=== PATIENT | male | born 1990 | race Caucasian/White ===

== ENCOUNTER 2019-08-11 08:52 | Emergency (ER) | payer MEDICAID ==
[~2019-08-11] VITALS: Ht 170.2 cm; Wt 90.0 kg
[~2019-08-11 08:52] MED LIST: ZIPR20CA2 PO
[2019-08-11] MEDS ORDERED: SODIUM CHLORIDE 0.9% 1,000ML IVBOLUS ONE (09:00)
[2019-08-11] MEDS ORDERED: ACETAMINOPHEN 325 MG TABLET ONE (09:24)
[2019-08-11 09:27] LABS: BASOPHILS # (AUTO) 0.03 x10^3/uL (0-0.1); BASOPHILS % (AUTO) 0 % (0-1); EOSINOPHILS # (AUTO) 0.15 x10^3/uL (0-0.4); EOSINOPHILS % (AUTO) 1 % (1-7); LYMPHOCYTES # (AUTO) 2.33 x10^3/uL (1-3.4); LYMPHOCYTES % (AUTO) 18 % (22-44); MD NO; MEAN CORPUSCULAR HEMOGLOBIN 30.2 pg (27.5-34.5); MEAN CORPUSCULAR HGB CONC 33.4 g/dL (33.2-36.2); MEAN CORPUSCULAR VOLUME 90.5 fL (81-97); MEAN PLATELET VOLUME 7.7 fL (7.4-10.4); MONOCYTES # (AUTO) 0.94 x10^3/uL (0.2-0.8); MONOCYTES % (AUTO) 7 % (2-9); NEUTROPHILS # (AUTO) 9.54 x10^3/uL (1.8-6.8); NEUTROPHILS % (AUTO) 73 % (42-75); PLATELET COUNT 334 x10^3/uL (130-400); RED BLOOD COUNT 5.06 x10^6/uL (4.38-5.82); RED CELL DISTRIBUTION WIDTH 13.5 % (9.4-14.8)
--- NOTE | 2019-08-11 09:29 | NUR ---
URINE COLLECTED AND SENT, LAB AT BEDSIDE FOR DRAW. FLUIDS AND MEDS PER MAR. PT DENIES ANY FURTHER NEEDS OR CONCERNS AT THIS TIME. PROPVIDED WITH WARM BLANKETS, CALL LIGHT IN REACH.
[2019-08-11] MEDS ORDERED: ACETAMINOPHEN 325 MG TABLET PO ONE (09:30)
[2019-08-11 09:32] LABS: MICROSCOPIC NOT IND
[2019-08-11 09:35] LABS: CULTURE INDICATED? NO
[2019-08-11 09:40] LABS: ALANINE AMINOTRANSFERASE 33 U/L (12-78); ALBUMIN 3.6 g/dL (3.4-5.0); ANION GAP 5 mmol/L (5-15); CALCIUM 8.3 mg/dL (8.5-10.1); CHLORIDE 111 mmol/L (98-107); CREATININE 0.78 mg/dL (0.7-1.3)
[2019-08-11 09:42] LABS: ALKALINE PHOSPHATASE 76 U/L (45-117); BILIRUBIN,TOTAL 0.3 mg/dL (0.2-1.0); TOTAL PROTEIN 6.9 g/dL (6.4-8.2)
[2019-08-11 10:02] VITALS: BP 115/62
== END 2019-08-11 10:20 | disposition home or self-care (01) ==
LOC: ED 09:08
DX: R11.2 Nausea with vomiting, unspecified (principal); B34.9 Viral infection, unspecified; R10.32 Left lower quadrant pain
CPT/HCPCS: 36415; 80053; 81003; 83690; 85025; 96360; 99283; J7030

== ENCOUNTER 2019-08-18 06:10 | Emergency (ER) | payer MEDICAID ==
[~2019-08-18] VITALS: Ht 172.7 cm; Wt 81.8 kg
[2019-08-18 06:13] VITALS: BP 122/67
--- NOTE | 2019-08-18 06:52 | NUR ---
pt to room from lobby
--- NOTE | 2019-08-18 07:21 | NUR ---
pt to xr w tech
--- NOTE | 2019-08-18 08:27 | NUR ---
pt ambulated to registration desk with a steady gait. nourishment provided to go.
== END 2019-08-18 08:29 ==
LOC: ED 08:20
DX: S02.2XXA Fracture of nasal bones, initial encounter for closed fracture (principal); Y04.0XXA Assault by unarmed brawl or fight, initial encounter; Y93.89 Activity, other specified; Y92.89 Other specified places as the place of occurrence of the external cause; Y99.8 Other external cause status
CPT/HCPCS: 70160; 99283

== ENCOUNTER 2019-09-06 12:45 | Emergency (ER) | payer MEDICAID ==
[~2019-09-06] VITALS: Ht 170.2 cm; Wt 84.2 kg
[2019-09-06 12:47] VITALS: BP 133/94
== END 2019-09-06 13:41 | disposition home or self-care (01) ==
LOC: ED 13:20
DX: L03.113 Cellulitis of right upper limb (principal); L03.114 Cellulitis of left upper limb; T69.022A Immersion foot, left foot, initial encounter; T69.021A Immersion foot, right foot, initial encounter; F17.200 Nicotine dependence, unspecified, uncomplicated
CPT/HCPCS: 99283

== ENCOUNTER 2019-09-07 00:59 | Emergency (ER) | payer MEDICAID ==
[~2019-09-07] VITALS: Ht 170.2 cm; Wt 84.1 kg
[2019-09-07 01:05] VITALS: BP 127/57
[2019-09-07] MEDS ORDERED: IBUPROFEN 200 MG TABLET ONE (01:28)
[2019-09-07] MEDS ORDERED: IBUPROFEN 600 MG TABLET PO ONE (01:30)
--- NOTE | 2019-09-07 02:12 | NUR ---
Patient/Caregiver given discharge instructions and they have confirmed that they understand the instructions. Patient ambulatory with steady gait.
== END 2019-09-07 02:13 | disposition home or self-care (01) ==
LOC: ED 01:36
DX: B35.3 Tinea pedis (principal); L03.114 Cellulitis of left upper limb; L03.113 Cellulitis of right upper limb
CPT/HCPCS: 99283

== ENCOUNTER 2019-09-08 11:24 | Emergency (ER) | payer MEDICAID ==
[~2019-09-08] VITALS: Ht 170.2 cm; Wt 84.0 kg
[2019-09-08 11:47] VITALS: BP 108/67
== END 2019-09-08 12:37 | disposition home or self-care (01) ==
LOC: ED 12:26
DX: L03.113 Cellulitis of right upper limb (principal); F17.200 Nicotine dependence, unspecified, uncomplicated
CPT/HCPCS: 99283

== ENCOUNTER 2019-09-09 12:36 | Emergency (ER) | payer MEDICAID ==
[~2019-09-09] VITALS: Ht 170.2 cm; Wt 84.5 kg
[2019-09-09 13:06] VITALS: BP 144/83
[2019-09-09 13:25] LABS: BASOPHILS # (AUTO) 0.06 x10^3/uL (0-0.1); BASOPHILS % (AUTO) 1 % (0-1); EOSINOPHILS # (AUTO) 0.11 x10^3/uL (0-0.4); EOSINOPHILS % (AUTO) 1 % (1-7); LYMPHOCYTES # (AUTO) 2.53 x10^3/uL (1-3.4); LYMPHOCYTES % (AUTO) 32 % (22-44); MD NO; MEAN CORPUSCULAR HEMOGLOBIN 30.4 pg (27.5-34.5); MEAN CORPUSCULAR HGB CONC 33.3 g/dL (33.2-36.2); MEAN CORPUSCULAR VOLUME 91.2 fL (81-97); MEAN PLATELET VOLUME 8.6 fL (7.4-10.4); MONOCYTES # (AUTO) 0.58 x10^3/uL (0.2-0.8); MONOCYTES % (AUTO) 7 % (2-9); NEUTROPHILS # (AUTO) 4.52 x10^3/uL (1.8-6.8); NEUTROPHILS % (AUTO) 58 % (42-75); PLATELET COUNT 330 x10^3/uL (130-400); RED BLOOD COUNT 4.96 x10^6/uL (4.38-5.82); RED CELL DISTRIBUTION WIDTH 14.7 % (9.4-14.8)
[2019-09-09 13:35] LABS: ALBUMIN 3.9 g/dL (3.4-5.0); ANION GAP 7 mmol/L (5-15); CALCIUM 8.7 mg/dL (8.5-10.1); CHLORIDE 111 mmol/L (98-107); CREATININE 0.92 mg/dL (0.7-1.3)
== END 2019-09-09 15:05 | disposition home or self-care (01) ==
LOC: ED 15:00
DX: L03.113 Cellulitis of right upper limb (principal)
CPT/HCPCS: 36415; 80048; 82040; 85025; 99284

== ENCOUNTER 2019-09-11 08:20 | Emergency (ER) | payer MEDICAID ==
[~2019-09-11] VITALS: Ht 170.2 cm; Wt 81.2 kg
[2019-09-11 08:34] VITALS: BP 148/87
[2019-09-11 09:03] LABS: MEAN CORPUSCULAR HEMOGLOBIN 30.5 pg (27.5-34.5); MEAN CORPUSCULAR HGB CONC 33.4 g/dL (33.2-36.2); MEAN CORPUSCULAR VOLUME 91.3 fL (81-97); MEAN PLATELET VOLUME 8.6 fL (7.4-10.4); PLATELET COUNT 297 x10^3/uL (130-400); RED BLOOD COUNT 5.18 x10^6/uL (4.38-5.82); RED CELL DISTRIBUTION WIDTH 14.3 % (9.4-14.8)
[2019-09-11 09:08] LABS: ALBUMIN 4.2 g/dL (3.4-5.0); ANION GAP 9 mmol/L (5-15); CALCIUM 9.1 mg/dL (8.5-10.1); CHLORIDE 109 mmol/L (98-107); CREATININE 0.88 mg/dL (0.7-1.3)
[2019-09-11 09:45] LABS: BASOPHILS # (AUTO) 0.02 x10^3/uL (0-0.1); BASOPHILS % (AUTO) 0 % (0-1); EOSINOPHILS # (AUTO) 0.03 x10^3/uL (0-0.4); EOSINOPHILS % (AUTO) 0 % (1-7); LYMPHOCYTES # (AUTO) 1.73 x10^3/uL (1-3.4); LYMPHOCYTES % (AUTO) 16 % (22-44); MD SCAN; MONOCYTES # (AUTO) 0.41 x10^3/uL (0.2-0.8); MONOCYTES % (AUTO) 4 % (2-9); NEUTROPHILS # (AUTO) 8.36 x10^3/uL (1.8-6.8); NEUTROPHILS % (AUTO) 79 % (42-75)
== END 2019-09-11 11:54 | disposition home or self-care (01) ==
LOC: ED 09:03
DX: F41.1 Generalized anxiety disorder (principal); R42 Dizziness and giddiness; R53.83 Other fatigue; M79.89 Other specified soft tissue disorders; F17.200 Nicotine dependence, unspecified, uncomplicated
CPT/HCPCS: 36415; 80048; 82040; 85025; 99283

== ENCOUNTER 2019-09-14 05:13 | Emergency (ER) | payer MEDICAID ==
[~2019-09-14] VITALS: Ht 170.2 cm; Wt 84.0 kg
[2019-09-14] MEDS ORDERED: LIDOCAINE-MPF 1%, 5ML INFIL ONE (05:30)
--- NOTE | 2019-09-14 05:42 | NUR ---
Patient brought in by chani, patient moans, stating he needs to urinate but can't. [facility] reports patient was drinking the past day and patient hasn't been able to urinate since midnight the night before. Patient attached to pulsatile oxygen sensor and blood pressure cuff, vital signs are stable (see Triage flowsheet.) Patient is alert, oriented and answers questions clearly between moans. Provider to bedside, assessed. Relayed to RN orders that are placed in electronic medical record for placement of Sloan catheter. RN returned to bedside with sloan catheter, placed per hospital protocol and urine sample collected. Provider informed. Collar Fuser was sent away while placing Sloan. RN called laboratory and asked to collect labs. Awaiting lab draw, and urinalysis.
[2019-09-14] MEDS ORDERED: LIDOCAINE-MPF 1%, 5ML ONE (05:59)
--- NOTE | 2019-09-14 06:15 | NUR ---
Lidocaine, sutures and suture tray provided to midlevel provider. Electrical Manufacturing Engineer asked to wash wound. Awaiting suturing of laceration by provider.
[2019-09-14] MEDS ORDERED: ACETAMINOPHEN 325 MG TABLET ONE (06:32)
[2019-09-14] MEDS ORDERED: NEOSPORIN OINT. PKT 1 PACKET ONE (06:36)
[2019-09-14] MEDS ORDERED: ACETAMINOPHEN 325 MG TABLET PO ONE (07:00)
[2019-09-14 07:14] VITALS: BP 114/66
--- NOTE | 2019-09-14 07:14 | NUR ---
Patient given wound care & discharge instructions and they have confirmed that they understand the instructions. Patient ambulatory with steady gait.
== END 2019-09-14 07:23 | disposition home or self-care (01) ==
LOC: ED 06:22
DX: S01.111A Laceration without foreign body of right eyelid and periocular area, initial encounter (principal); S06.0X9A Concussion with loss of consciousness of unspecified duration, initial encounter; F10.120 Alcohol abuse with intoxication, uncomplicated; Y00.XXXA Assault by blunt object, initial encounter; Y93.89 Activity, other specified; Y92.488 Other paved roadways as the place of occurrence of the external cause; Y99.8 Other external cause status; Y90.9 Presence of alcohol in blood, level not specified
CPT/HCPCS: 12011; 70450; 70486; 99284

== ENCOUNTER 2019-09-28 08:49 | Emergency (ER) | payer MEDICAID ==
[~2019-09-28] VITALS: Ht 170.2 cm; Wt 82.0 kg
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
[2019-09-28 08:56] VITALS: BP 133/71
--- NOTE | 2019-09-28 09:38 | NUR ---
Patient/Caregiver given discharge instructions and they have confirmed that they understand the instructions. Patient ambulatory with steady gait.
== END 2019-09-28 09:40 | disposition home or self-care (01) ==
LOC: ED 08:59
DX: S60.511A Abrasion of right hand, initial encounter (principal); S60.410A Abrasion of right index finger, initial encounter; S01.81XD Laceration without foreign body of other part of head, subsequent encounter; F10.129 Alcohol abuse with intoxication, unspecified; Y90.0 Blood alcohol level of less than 20 mg/100 ml; X58.XXXA Exposure to other specified factors, initial encounter; Y93.89 Activity, other specified; Y92.89 Other specified places as the place of occurrence of the external cause; Y99.8 Other external cause status
CPT/HCPCS: 99283

== ENCOUNTER 2019-10-17 06:05 | Emergency (ER) | payer MEDICAID ==
[~2019-10-17] VITALS: Ht 170.2 cm; Wt 83.3 kg
--- NOTE | 2019-10-17 06:28 | NUR ---
PT C/O COUGH AND SORE THROAT, STATES HE COUGHED UP BLOOD. ERP AT BEDSIDE FOR EVAL.
[2019-10-17] MEDS ORDERED: DEXAMETHASONE 4 MG TABLET ONE (06:36)
--- NOTE | 2019-10-17 06:48 | NUR ---
BEDSIDE REPORT TO HERBERT ROMEO.
[2019-10-17] MEDS ORDERED: DEXAMETHASONE 4 MG TABLET PO ONE (07:00)
--- NOTE | 2019-10-17 07:08 | NUR ---
Assumed care of pt. Resting quietly at this time, denies any needs. Pt aware waiting for final test results and chart review by ERP.
[2019-10-17 07:52] VITALS: BP 132/77
--- NOTE | 2019-10-17 07:54 | NUR ---
REVIEWED DISCHARGE INSTRUCTIONS AND PRESCRIPTIONS W/ PT, VERBALIZED UNDERSTANDING TO INFORMATION PROVIDED INCLUDING FOLLOW UP CARE, RETURN PRECAUTIONS, AND HAND HYGIENE, DENIED QUESTIONS/CONCERNS. PT AMBULATED FROM ED, NO SIGNS OF DISTRESS AT TIME OF DISCHARGE.
== END 2019-10-17 07:56 | disposition home or self-care (01) ==
LOC: ED 06:32
DX: J02.8 Acute pharyngitis due to other specified organisms (principal); B97.89 Other viral agents as the cause of diseases classified elsewhere
CPT/HCPCS: 71046; 87081; 87880; 99284

== ENCOUNTER 2019-10-18 16:16 | Inpatient (IN) | payer MEDICAID ==
[~2019-10-18] VITALS: Ht 166.9 cm; Wt 84.5 kg
[2019-10-18] MEDS ORDERED: DEXAMETHASONE 4 MG/ML, 1ML ONE (16:56)
[2019-10-18] MEDS ORDERED: DEXAMETHASONE 4 MG/ML, 1ML IVPush ONE (17:00)
[2019-10-18] MEDS ORDERED: SODIUM CHLORIDE 0.9% 1,000ML IVBOLUS ONE ×2 (17:00→18:30)
[2019-10-18] MEDS ORDERED: SODIUM CHLORIDE FLUSH 10ML SYR IVF ONE (17:00)
--- NOTE | 2019-10-18 17:09 | NUR ---
PIV EST LABS SENT/BC X2. MEDS PER MAR.
[2019-10-18 17:23] LABS: ALANINE AMINOTRANSFERASE 35 U/L (12-78); ALBUMIN 3.4 g/dL (3.4-5.0); ANION GAP 8 mmol/L (5-15); CALCIUM 8.7 mg/dL (8.5-10.1); CHLORIDE 107 mmol/L (98-107); CREATININE 0.93 mg/dL (0.7-1.3)
[2019-10-18 17:25] LABS: ALKALINE PHOSPHATASE 96 U/L (45-117); BILIRUBIN,TOTAL 0.2 mg/dL (0.2-1.0); TOTAL PROTEIN 7.4 g/dL (6.4-8.2)
[2019-10-18 17:39] LABS: MEAN CORPUSCULAR HEMOGLOBIN 30.1 pg (27.5-34.5); MEAN CORPUSCULAR HGB CONC 33.3 g/dL (33.2-36.2); MEAN CORPUSCULAR VOLUME 90.4 fL (81-97); MEAN PLATELET VOLUME 8.9 fL (7.4-10.4); PLATELET COUNT 349 x10^3/uL (130-400); RED BLOOD COUNT 5.08 x10^6/uL (4.38-5.82); RED CELL DISTRIBUTION WIDTH 13.8 % (9.4-14.8)
[2019-10-18 17:46] LABS: MD YES
[2019-10-18] MEDS ORDERED: OMNIPAQUE 350 MG/ML, 100ML BOTTLE ONE (18:07)
[2019-10-18] MEDS ORDERED: BENZOCAINE 20% SPRAY 0.5ML ONE (18:24)
[2019-10-18] MEDS ORDERED: BENZOCAINE AEROSOL SPRAY 20%, 60ML ONE (18:24)
[2019-10-18] MEDS ORDERED: CLINDAMYCIN PMX 900MG/50ML 50 ML IV ONE (18:30)
[2019-10-18] MEDS ORDERED: BENZOCAINE 20% SPRAY 0.5ML TP ONE (18:30)
[2019-10-18] MEDS ORDERED: MORPHINE SULFATE 4 MG/ML, 1ML IVPush PRN (18:30)
[2019-10-18] MEDS ORDERED: ONDANSETRON 2MG/ML, 2ML IVPush ONE (18:30)
[2019-10-18] MEDS ORDERED: ONDANSETRON 2MG/ML, 2ML ONE (18:31)
[2019-10-18] MEDS ORDERED: MORPHINE SULFATE 4 MG/ML, 1ML ONE (18:31)
[2019-10-18] MEDS ORDERED: CLINDAMYCIN PMX 900MG/50ML 50 ML ONE (18:32)
--- NOTE | 2019-10-18 18:42 | NUR ---
TBADM. MEDS PER OCT. SHOAIB IN TO DRAIN ABSCESS IN THROAT. PT AWARE OF ADMIT, AGREES. VSS. CALL NUGENT IN REACH.
[2019-10-18 18:44] LABS: BAND#(MANUAL) 0.57 x10^3/uL; BANDS%(MANUAL) 3 % (0-7); EOS#(MANUAL) 0.19 x10^3/uL (0.0-0.4); EOS% (MANUAL) 1 % (1-7); LYMPH#(MANUAL) 2.47 x10^3/uL (1-3.4); LYMPHS% (MANUAL) 13 % (22-44); MONOS#(MANUAL) 1.71 x10^3/uL (0.3-2.7); MONOS% (MANUAL) 9 % (2-9); REACTIVE LYMPHS # (MANUAL) 0.19 x10^3/uL (0-0); REACTIVE LYMPHS % (MANUAL) 1 % (0-0); SEG#(MANUAL) 13.87 x10^3/uL (1.8-6.8); SEGS% (MANUAL) 73 % (42-75)
[2019-10-18 18:45] LABS: <PLATELET ESTIMATE> ADEQUATE; <PLT MORPHOLOGY> NORMAL PLT MORPH; <RBC MORPHOLOGY> NORMAL
--- NOTE | 2019-10-18 19:43 | NUR ---
PT RESTING, AWAITING BED. ABSCESS WAS DRAINED. VSS. CALM, COOPERATIVE. CALL NUGENT.
--- NOTE | 2019-10-18 20:30 | NUR ---
REPORT TO SULY ROMEO. PT BEING TRANSPORTED UPSTAIRS W/ ALL BELONGINGS.
[2019-10-18 20:49] VITALS: BP 117/62
[2019-10-18] MEDS ORDERED: LIDODERM 5% PATCH TD PRN (23:00)
[2019-10-18] MEDS ORDERED: ACETAMINOPHEN 325 MG TABLET PO PRN (23:00)
[2019-10-18] MEDS ORDERED: ONDANSETRON 2MG/ML, 2ML IVPush PRN (23:00)
[2019-10-18] MEDS ORDERED: DOCUSATE 100 MG CAPSULE PO PRN (23:00)
[2019-10-18] MEDS ORDERED: TEMAZEPAM 15 MG CAPSULE PO PRN (23:00)
[2019-10-18] MEDS ORDERED: maalox/diphenh/lido/sucralfate 5 ML PO PRN (23:30)
[2019-10-18] MEDS: morphine SULFATE 10 MG/ML, 1ML IVPush PRN (23:30)
[2019-10-19] MEDS: CLINDAMYCIN PMX 600MG/50ML 50 ML IV SCH ×2 (00:38→08:31)
[2019-10-19 03:43] VITALS: BP 117/70
[2019-10-19 04:59] LABS: MEAN CORPUSCULAR HEMOGLOBIN 30.2 pg (27.5-34.5); MEAN CORPUSCULAR HGB CONC 32.9 g/dL (33.2-36.2); MEAN PLATELET VOLUME 8.8 fL (7.4-10.4); PLATELET COUNT 336 x10^3/uL (130-400); RED BLOOD COUNT 4.78 x10^6/uL (4.38-5.82); RED CELL DISTRIBUTION WIDTH 13.9 % (9.4-14.8)
[2019-10-19 05:10] LABS: ANION GAP 7 mmol/L (5-15); CALCIUM 8.5 mg/dL (8.5-10.1); CHLORIDE 107 mmol/L (98-107); CREATININE 0.71 mg/dL (0.7-1.3)
[2019-10-19 05:40] LABS: BASOPHILS # (AUTO) 0.22 x10^3/uL (0-0.1); BASOPHILS % (AUTO) 1 % (0-1); EOSINOPHILS % (AUTO) 0 % (1-7); LYMPHOCYTES # (AUTO) 1.14 x10^3/uL (1-3.4); LYMPHOCYTES % (AUTO) 7 % (22-44); MD SCAN; MONOCYTES # (AUTO) 0.52 x10^3/uL (0.2-0.8); MONOCYTES % (AUTO) 3 % (2-9); NEUTROPHILS % (AUTO) 88 % (42-75)
[2019-10-19 07:24] VITALS: BP 117/65
[2019-10-19] MEDS: morphine SULFATE 10 MG/ML, 1ML IVPush PRN ×2 (08:31→13:32)
[2019-10-19 13:19] VITALS: BP 96/56
[2019-10-19] MEDS: AMPICILLIN/SULBACTAM 3 GM in SODIUM CHLORIDE 0.9% 100 ML IV SCH ×2 (13:27→18:20)
[2019-10-19] MEDS: OXYcodone/APAP 5/325MG TABLET PO PRN (18:20)
[2019-10-19 19:36] VITALS: BP 120/79
[2019-10-20 00:34] VITALS: BP 113/77
[2019-10-20] MEDS: AMPICILLIN/SULBACTAM 3 GM in SODIUM CHLORIDE 0.9% 100 ML IV SCH ×3 (00:46→13:02)
[2019-10-20] MEDS: OXYcodone/APAP 5/325MG TABLET PO PRN ×3 (00:50→13:02)
[2019-10-20 06:23] LABS: BASOPHILS # (AUTO) 0.04 x10^3/uL (0-0.1); BASOPHILS % (AUTO) 0 % (0-1); EOSINOPHILS # (AUTO) 0.08 x10^3/uL (0-0.4); EOSINOPHILS % (AUTO) 1 % (1-7); LYMPHOCYTES # (AUTO) 4.19 x10^3/uL (1-3.4); LYMPHOCYTES % (AUTO) 41 % (22-44); MD NO; MEAN CORPUSCULAR HEMOGLOBIN 30.2 pg (27.5-34.5); MEAN CORPUSCULAR VOLUME 91.4 fL (81-97); MEAN PLATELET VOLUME 8.8 fL (7.4-10.4); MONOCYTES # (AUTO) 0.94 x10^3/uL (0.2-0.8); MONOCYTES % (AUTO) 9 % (2-9); NEUTROPHILS # (AUTO) 5.09 x10^3/uL (1.8-6.8); NEUTROPHILS % (AUTO) 49 % (42-75); PLATELET COUNT 293 x10^3/uL (130-400); RED BLOOD COUNT 4.53 x10^6/uL (4.38-5.82); RED CELL DISTRIBUTION WIDTH 14.1 % (9.4-14.8)
[2019-10-20 07:14] VITALS: BP 113/71
[2019-10-20 14:00] VITALS: BP 121/77
[2019-10-20] MEDS ORDERED: AMOX1TAB64 PO (14:25)
[2019-10-20] MEDS ORDERED: ACET325T26 PO (14:25)
== END 2019-10-20 15:51 | disposition home or self-care (01) | DRG 872 ==
LOC: ED 19:40 → EDIP 19:41 → 3N 20:40 → DCLOUNGE 10-20 15:47
PROVIDERS: ADMIT Family Medicine; ATTEND Hospitalist
PROC: 0C9P3ZZ Drainage of Tonsils, Percutaneous Approach (ICD-10-PCS; principal; 2019-10-18)
DX: A41.9 Sepsis, unspecified organism (principal); J36 Peritonsillar abscess; F12.90 Cannabis use, unspecified, uncomplicated; F17.200 Nicotine dependence, unspecified, uncomplicated; F20.9 Schizophrenia, unspecified; Z82.79 Family history of other congenital malformations, deformations and chromosomal abnormalities; Z82.49 Family history of ischemic heart disease and other diseases of the circulatory system; Z59.0 Homelessness
CPT/HCPCS: 36415; 70491; 80048; 80053; 83605; 84145; 85025; 87040; 87070; 87147; 87205; 96361; 96374; 96375; G0378; J0295; J1100; J2405; Q9967; J2270; J7030

== ENCOUNTER 2019-10-26 06:51 | Emergency (ER) | payer MEDICAID ==
[~2019-10-26] VITALS: Ht 170.2 cm; Wt 87.2 kg
[~2019-10-26 06:51] MED LIST changes: +ACET325T26 PO; +AMOX1TAB64 PO
[2019-10-26 07:12] VITALS: BP 128/84
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
--- NOTE | 2019-10-26 08:14 | NUR ---
PT BACK TO ROOM FROM XRAY AT THIS TIME.
[2019-10-26] MEDS ORDERED: IBUPROFEN 800 MG TABLET ONE (08:17)
--- NOTE | 2019-10-26 08:19 | NUR ---
pt medicated per emar. pt tolerated well.
[2019-10-26] MEDS ORDERED: IBUPROFEN 800 MG TABLET PO ONE (08:30)
--- NOTE | 2019-10-26 09:12 | NUR ---
given dc instruction pt understood pt understood pt up ambulated to check out
== END 2019-10-26 09:15 | disposition home or self-care (01) ==
LOC: ED 09:09
DX: J06.9 Acute upper respiratory infection, unspecified (principal)
CPT/HCPCS: 71046; 87081; 87880; 99284

== ENCOUNTER 2019-11-05 08:39 | Emergency (ER) | payer MEDICAID ==
[~2019-11-05] VITALS: Ht 170.2 cm; Wt 85.0 kg
[2019-11-05 08:43] VITALS: BP 124/89
== END 2019-11-05 09:38 | disposition home or self-care (01) ==
LOC: ED 08:58
DX: B34.9 Viral infection, unspecified (principal); F17.210 Nicotine dependence, cigarettes, uncomplicated
CPT/HCPCS: 99282

== ENCOUNTER 2020-01-23 06:32 | Emergency (ER) | payer MEDICAID ==
[~2020-01-23] VITALS: Ht 177.8 cm; Wt 90.0 kg
[2020-01-23 06:47] VITALS: BP 124/90
[2020-01-23] MEDS ORDERED: DIPHENHYDRAMINE 25 MG CAPSULE PO ONE (07:00)
[2020-01-23] MEDS ORDERED: DIPHENHYDRAMINE 25 MG CAPSULE ONE (07:13)
== END 2020-01-23 07:18 | disposition home or self-care (01) ==
LOC: ED 07:10
DX: S30.861A Insect bite (nonvenomous) of abdominal wall, initial encounter (principal); S50.862A Insect bite (nonvenomous) of left forearm, initial encounter; S50.861A Insect bite (nonvenomous) of right forearm, initial encounter; S40.862A Insect bite (nonvenomous) of left upper arm, initial encounter; S40.861A Insect bite (nonvenomous) of right upper arm, initial encounter; W57.XXXA Bitten or stung by nonvenomous insect and other nonvenomous arthropods, initial encounter; Y93.89 Activity, other specified; Y92.89 Other specified places as the place of occurrence of the external cause; Y99.8 Other external cause status
CPT/HCPCS: 99282; Q0163; 99281

== ENCOUNTER 2020-03-12 11:17 | Emergency (ER) | payer MEDICAID ==
[~2020-03-12] VITALS: Ht 167.6 cm; Wt 74.0 kg
--- NOTE | 2020-03-12 11:52 | NUR ---
PT BIB [facility]. PT FOUND BY PD SLEEPING BY [place] IN WET CLOTHING. PT CURRENTLY SLEEPING, AROUSES TO VOICE OR STIMULI. PT ONLY ALERT TO SELF, DOES ADMIT TO USING ETOH. PT VSS, PLACED ON ALL MONITORS, BLANKET WARMER ON, IN DRY GOWN. PT PROTECTING OWN AIRWAY. NO TRAUMA NOTED. WILL FOLLOW ORDERS. SIEZURE PADS PLACED FOR SAFETY PT'S MEDICAL HX UNK.
--- NOTE | 2020-03-12 12:56 | NUR ---
PT REMAINS SLEEPING IN BED, REMAINS ON MONITORS, VSS. PT UNABLE TO AMBULATE AT THIS TIME. PT AROUSES TO VOICE, STILL REMAINS DROWSY, NOT ABLE TO CARE FOR SELF. PT PROTECTING OWN AIRWAY WELL. WILL REASSESS. PT IS MTF.
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
[2020-03-12 13:59] LABS: BASOPHILS # (AUTO) 0.05 x10^3/uL (0-0.1); BASOPHILS % (AUTO) 1 % (0-1); EOSINOPHILS # (AUTO) 0.12 x10^3/uL (0-0.4); EOSINOPHILS % (AUTO) 1 % (1-7); LYMPHOCYTES # (AUTO) 3.15 x10^3/uL (1-3.4); LYMPHOCYTES % (AUTO) 38 % (22-44); MD NO; MEAN CORPUSCULAR HEMOGLOBIN 31.1 pg (27.5-34.5); MEAN CORPUSCULAR HGB CONC 33.7 g/dL (33.2-36.2); MEAN CORPUSCULAR VOLUME 92.1 fL (81-97); MEAN PLATELET VOLUME 8.9 fL (7.4-10.4); MONOCYTES # (AUTO) 0.64 x10^3/uL (0.2-0.8); MONOCYTES % (AUTO) 8 % (2-9); NEUTROPHILS # (AUTO) 4.32 x10^3/uL (1.8-6.8); NEUTROPHILS % (AUTO) 52 % (42-75); PLATELET COUNT 279 x10^3/uL (130-400); RED BLOOD COUNT 4.67 x10^6/uL (4.38-5.82); RED CELL DISTRIBUTION WIDTH 13.2 % (9.4-14.8)
[2020-03-12 14:07] LABS: ALBUMIN 3.4 g/dL (3.4-5.0); ANION GAP 8 mmol/L (5-15); CHLORIDE 116 mmol/L (98-107); CREATININE 0.74 mg/dL (0.7-1.3)
[2020-03-12 14:11] LABS: SALICYLATE LEVEL < 1.7 mg/dL (2.8-20.0)
--- NOTE | 2020-03-12 15:00 | NUR ---
PT RESTING IN BED, GIVEN FOOD, TOLERATING WELL. NEW CLOTHING FOUND FOR PT FOR D/C, PT'S CLOTHING IS WET. PT REMAINS ON MONITORS, VSS. PT IS MORE ALERT, REMAINS AWAKE IN BED.
--- NOTE | 2020-03-12 15:57 | NUR ---
PT DRESSED IN NEW, DRY CLOTHING, GIVEN DRY SHOES WELL. PT WITH STEADY GAIT, ABLE TO CARE FOR SELF. PT OF FOR D/C PER ERMD. PT D/C'D WITH ALL OWN BELONGINGS.
[2020-03-12 15:58] VITALS: BP 112/73
== END 2020-03-12 16:00 | disposition home or self-care (01) ==
LOC: EDBD 11:17 → MERGE 15:05 → ED 15:05
DX: F10.220 Alcohol dependence with intoxication, uncomplicated (principal); Y90.9 Presence of alcohol in blood, level not specified
CPT/HCPCS: 36415; 80048; 80307; 82040; 85025; 99283; 99406

== ENCOUNTER 2020-04-28 18:42 | Emergency (ER) | payer MEDICAID ==
[~2020-04-28] VITALS: Ht 170.2 cm; Wt 70.0 kg
--- NOTE | 2020-04-28 18:54 | NUR ---
REPORT TO JAMIE ROMEO
[2020-04-28] MEDS ORDERED: DIPH,PERTUSS(ACELL),TET VAC/PF 0.5 ML IM-VACC ONE ×2 (19:15→19:30)
[2020-04-28] MEDS ORDERED: LIDOCAINE-MPF 1%, 5ML INFIL ONE (19:30)
[2020-04-28] MEDS ORDERED: LIDOCAINE-MPF 1%, 5ML ONE (20:15)
--- NOTE | 2020-04-28 22:17 | NUR ---
Assist RN: suturing and re-evaluation done. patient discharged with instruction. verbalized understanding.
[2020-04-28 22:19] VITALS: BP 109/61
== END 2020-04-28 22:21 | disposition home or self-care (01) ==
LOC: ED 19:12
DX: S01.01XA Laceration without foreign body of scalp, initial encounter (principal); F10.129 Alcohol abuse with intoxication, unspecified; Y99.0 Civilian activity done for income or pay; X58.XXXA Exposure to other specified factors, initial encounter; Y93.89 Activity, other specified; Y92.89 Other specified places as the place of occurrence of the external cause; Y99.8 Other external cause status
CPT/HCPCS: 12031; 70450; 90471; 90715

== ENCOUNTER 2020-06-04 10:23 | Emergency (ER) | payer MEDICAID ==
[~2020-06-04] VITALS: Ht 170.2 cm; Wt 80.6 kg
[2020-06-04 10:35] VITALS: BP 148/82
== END 2020-06-04 11:23 | disposition home or self-care (01) ==
LOC: ED 11:00
DX: L02.512 Cutaneous abscess of left hand (principal); F17.200 Nicotine dependence, unspecified, uncomplicated
CPT/HCPCS: 10060; 99283

== ENCOUNTER 2020-06-30 03:27 | Emergency (ER) | payer MEDICAID ==
[~2020-06-30] VITALS: Ht 172.7 cm; Wt 86.0 kg
--- NOTE | 2020-06-30 03:33 | NUR ---
pt bib [facility] from [facility] for "flu-like symptoms", states body aches, "feels like i got hit in the head" and itchiness, denies being around COVID+ individuals however living in homeless senior living. pt deconed on arrival for bed bugs. NAD, smooth and steady gait, VSS. pt resting on gurney, provided warm blankets for comfort, bed in lowest, rails up, call light on lap, TM.
--- NOTE | 2020-06-30 03:57 | NUR ---
PT COVID SWABBED AND SAMPLE WALKED TO LAB, NAD, NO CHANGE IN CONDITION, WCTM.
[2020-06-30 04:31] LABS: BASOPHILS % (AUTO) 1 % (0-1); EOSINOPHILS % (AUTO) 4 % (1-7); LYMPHOCYTES % (AUTO) 25 % (22-44); MD NO; MEAN CORPUSCULAR HEMOGLOBIN 30.7 pg (27.5-34.5); MEAN CORPUSCULAR HGB CONC 33.9 g/dL (33.2-36.2); MEAN PLATELET VOLUME 8.8 fL (7.4-10.4); MONOCYTES % (AUTO) 9 % (2-9); NEUTROPHILS % (AUTO) 61 % (42-75); PLATELET COUNT 294 x10^3/uL (130-400); RED BLOOD COUNT 4.59 x10^6/uL (4.38-5.82); RED CELL DISTRIBUTION WIDTH 13.8 % (9.4-14.8)
[2020-06-30 04:43] LABS: ALBUMIN 3.7 g/dL (3.4-5.0); ANION GAP 7 mmol/L (5-15); CALCIUM 7.9 mg/dL (8.5-10.1); CHLORIDE 111 mmol/L (98-107); CREATININE 0.85 mg/dL (0.7-1.3)
--- NOTE | 2020-06-30 04:47 | NUR ---
PT RESTING ON [place], KAMI, NO CHANGE IN CONDITION, WAITING ON Y[place]Y [place], WCTM.
[2020-06-30 05:30] VITALS: BP 124/63
--- NOTE | 2020-06-30 05:30 | NUR ---
Patient given discharge instructions and they have confirmed that they understand the instructions. Patient ambulatory with steady gait. nad, all additional questions answered appropriately, provided taxi voucher home. no personal belongings left in room at time of dc.
== END 2020-06-30 05:44 | disposition home or self-care (01) ==
LOC: ED 05:38
DX: B86 Scabies (principal); Z20.828 Contact with and (suspected) exposure to other viral communicable diseases; R05 Cough; R11.0 Nausea; R53.1 Weakness
CPT/HCPCS: 71045; 80048; 82040; 85025; 87635; 99284